=== PATIENT | male | born 1970 | race Caucasian/White ===

== ENCOUNTER 2021-04-29 02:18 | Emergency (ER) | payer OTHER ==
[~2021-04-29] VITALS: Ht 175.3 cm; Wt 90.7 kg
[2021-04-29 02:25] VITALS: BP_SYST 179
[2021-04-29] MEDS ORDERED: predniSONE 20 MG TABLET PO ONE (03:15)
[2021-04-29] MEDS ORDERED: ACETAMINOPHEN/CODEINE 300 MG-30 MG TABLET PO ONE (03:15)
[2021-04-29 05:17] VITALS: BP_SYST 168
== END 2021-04-29 05:17 | disposition home or self-care (01) ==
LOC: SED 02:18
DX: M54.2 Cervicalgia (principal); R42 Dizziness and giddiness; I10 Essential (primary) hypertension
CPT/HCPCS: 72040; 99283; J7512